=== PATIENT | male | born 1995 | race Caucasian/White ===

== ENCOUNTER 2017-09-12 16:53 | Outpatient (CLI) | payer OTHER ==
[2017-09-12 17:32] LABS: #Eosinphils 0.2 thou/uL (0.0-0.7); #Lymphocytes 1.9 thou/uL (1.20-3.40); #Monocytes 0.8 thou/uL (0.11-0.59); %Basophils 0.7 % (0.0-1.0); %Eosinophils 2.3 % (0.0-10.0); %Lymphocytes 26.9 % (28.0-48.0); %Monocytes 12.1 % (0.0-4.0); Hemoglobin 15.9 g/dL (14.0-18.0); Mean Corpuscular HGB CONC 33.2 g/dL (32.0-36.0); Mean Corpuscular Hemoglobin 31.2 pg (25.0-35.0); Mean Corpuscular Volume 93.9 fl (77.0-87.0); Mean Platelet Volume 7.4 fL (7.4-10.4); Platelet Count 231 thou/uL (130-400); RBC Distribution Width 11.3 % (11.5-14.5); Red Blood Cell (RBC) Count 5.09 mill/uL (4.00-5.20)
[2017-09-12 18:02] LABS: ALT (SGPT) 20 U/L (8-55); AST (SGOT) 13 U/L (5-34); Albumin 4.9 g/dL (3.5-5.0); Alkaline Phosphatase 61 U/L (Less than 750); Anion Gap 15 mmol/L (10-20); BUN (Urea Nitrogen) 6 mg/dL (8.9-20.6); Bilirubin, Direct 0.3 mg/dL (0.1-0.3); Bilirubin, Total 0.9 mg/dL (0.2-1.2); Calc. Creatinine Clearance 0 mL/min (70-130); Calcium 10.5 mg/dL (7.8-10.44); Carbon Dioxide 25 mmol/L (22-29); Chloride 104 mmol/L (98-107); Estimated GFR-MDRD Greater than 90; Globulin 2.7 g/dL (2.4-3.5); Glucose 101 mg/dL (70-105); Potassium 4.7 mmol/L (3.5-5.1); Protein, Total 7.6 g/dL (6.0-8.3); Sodium 139 mmol/L (136-145)
== END 2017-09-12 16:54 | disposition home or self-care (01) ==
LOC: LABBT 16:53
PROVIDERS: ATTEND Surgery
DX: Z01.810 Encounter for preprocedural cardiovascular examination (principal); K81.1 Chronic cholecystitis
CPT/HCPCS: 80053; 80076; 85025

== ENCOUNTER 2017-09-16 08:20 | Observation (INO) | payer OTHER ==
[2017-09-16] MEDS ORDERED: cefOXitin 2 GM, Syringe 1 ML in Sterile Water 10 ML SLOW IVP SCH ×4 (09:45)
[2017-09-16] MEDS ORDERED: Bupivacaine/Epinephrine 0.25% 30 ML VIAL ONE (09:51)
[2017-09-16] MEDS ORDERED: Fentanyl 100 MCG/2 ML VIAL ONE ×4 (10:01→11:58)
[2017-09-16] MEDS ORDERED: Morphine 4 MG/ML VIAL ONE (10:01)
[2017-09-16] MEDS ORDERED: Ondansetron HCl/PF 4 MG/2 ML Vial ONE ×2 (10:03→17:17)
--- NOTE | 2017-09-16 11:31 | OP ---
PREOPERATIVE DIAGNOSIS: Chronic cholecystitis. SURGEON: Luis Steven M.D. PROCEDURE PERFORMED: Laparoscopic cholecystectomy. INDICATIONS: This is a 22-year-old male who has several month history of intermittent right upper qu adrant pain radiating to the back, associated with nausea, worse after certain foods. He had an ultr asound that was negative. He had a HIDA scan, which showed a low ejection fraction. FINDINGS: He had a fairly long small caliber cystic duct, but otherwise unremarkable. DESCRIPTION OF PROCEDURE: After informed consent was obtained, [facility] and given general endotracheal anesthesia, placed in the supine position. The abdomen was pre pped and draped in usual fashion. Local anesthesia infiltrated subcutaneously and deep. A subumbili ricardo incision was performed. Subcu divided sharply. The fascia grasped and two stay sutures of 0 Fadi ryl placed through the side of midline. Midline incised. Digital palpation revealed no local adhesi ons. A blunt 10-12 mm trocar inserted. Pneumoperitoneum was created to a pressure of 15 mmHg. Zero degree laparoscope inserted under direct vision, three 5 mm ports placed subcostally. Gallbladder g rasped advanced superiorly. The peritoneum was lysed distally to expose the cystic duct, cystic serjio ry and critical view. The duct was triply ligated and divided. The artery triply ligated and divide d. The gallbladder was removed from its fossa utilizing electrocautery, removed from the abdomen thr ough the umbilical port. Hemostasis was assured. Trocars and retractors removed. The fascia closed with interrupted 0 Vicryl suture. The skin closed with interrupted 4-0 Rapide. Dermabond applied. The patient tolerated the procedure well and was transferred to recovery in good condition. Sponge and needle count verified correct x2.
[2017-09-16] MEDS ORDERED: HYDROcodone/Acetaminophen 5/325 mg Tablet ONE (13:46)
[2017-09-16] MEDS ORDERED: Promethazine HCl 25 MG/ML VIAL ONE (15:52)
[2017-09-16] MEDS ORDERED: PROPOFOL 200 MG/20 ML VIAL ONE (17:17)
[2017-09-16] MEDS ORDERED: Ketorolac Tromethamine 30 MG/ML VIAL ONE (17:17)
[2017-09-16] MEDS ORDERED: Glycopyrrolate 0.2 MG/ML 5 ML SYRINGE ONE (17:17)
[2017-09-16] MEDS ORDERED: Lidocaine 1% PF 5 ML VIAL ONE (17:17)
[2017-09-16] MEDS ORDERED: Dexamethasone 20 MG/5 ML VIAL ONE ×2 (17:17)
[2017-09-16] MEDS ORDERED: PHENYLEPHRINE-NS 100 MCG/ML 10 ML SYRINGE ONE (17:17)
[2017-09-16] MEDS ORDERED: Morphine 5 MG/ML SYRINGE SLOW IVP PRN (19:22)
[2017-09-16] MEDS ORDERED: Ondansetron HCl/PF 4 MG/2 ML Vial IVP PRN (19:23)
[2017-09-16] MEDS ORDERED: Ondansetron ODT 4 MG TAB SL PRN (19:23)
[2017-09-16] MEDS: D5 1/2 NS w/20 mEq KCL 1,000 ML IV SCH (20:50)
[2017-09-16] MEDS ORDERED: Pantoprazole 40 MG VIAL IVP SCH ×2 (21:00)
[2017-09-16 21:15] VITALS: BMI 23.7
[2017-09-16] MEDS: Promethazine HCl 12.5 MG in Sodium Chloride 0.9% 50 ML IVPB PRN (23:28)
[2017-09-16] MEDS: Morphine 5 MG/ML SYRINGE SLOW IVP PRN (23:28)
[2017-09-17] MEDS: Morphine 5 MG/ML SYRINGE SLOW IVP PRN ×3 (02:52→11:51)
[2017-09-17 05:59] LABS: #Lymphocytes 1.3 thou/uL (1.20-3.40); #Monocytes 1.2 thou/uL (0.11-0.59); #Neutrophils 9.4 thou/uL (1.40-6.50); %Basophils 0.1 % (0.0-1.0); %Eosinophils 0.3 % (0.0-10.0); %Lymphocytes 10.5 % (28.0-48.0); %Monocytes 9.7 % (0.0-4.0); %Neutrophils 79.4 % (31.0-61.0); Hemoglobin 15.4 g/dL (14.0-18.0); Mean Corpuscular HGB CONC 32.9 g/dL (32.0-36.0); Mean Corpuscular Hemoglobin 30.2 pg (25.0-35.0); Mean Platelet Volume 7.4 fL (7.4-10.4); Platelet Count 226 thou/uL (130-400); RBC Distribution Width 11.2 % (11.5-14.5); Red Blood Cell (RBC) Count 5.08 mill/uL (4.00-5.20); White Blood Cell (WBC) Count 11.8 thou/uL (4.8-10.8)
[2017-09-17 06:07] LABS: ALT (SGPT) 37 U/L (8-55); AST (SGOT) 30 U/L (5-34); Albumin 4.3 g/dL (3.5-5.0); Alkaline Phosphatase 60 U/L (Less than 750); Bilirubin, Direct 0.2 mg/dL (0.1-0.3); Bilirubin, Total 0.5 mg/dL (0.2-1.2); Protein, Total 6.8 g/dL (6.0-8.3)
[2017-09-17] MEDS: D5 1/2 NS w/20 mEq KCL 1,000 ML IV SCH (06:21)
[2017-09-17] MEDS: Promethazine HCl 12.5 MG in Sodium Chloride 0.9% 50 ML IVPB PRN (06:22)
[2017-09-17] MEDS ORDERED: traMADol HCl 50 MG TAB PO PRN ×2 (12:52)
[2017-09-17] MEDS ORDERED: Ibuprofen 800 MG TAB PO PRN (12:53)
[2017-09-17] MEDS ORDERED: Acetaminophen 500 MG TAB PO PRN (12:53)
[2017-09-17 13:20] VITALS: BP 114/67; TEMP 98.5
== END 2017-09-17 13:50 | disposition home or self-care (01) ==
LOC: SDC 08:20 → 3SE 18:49
PROVIDERS: ADMIT Surgery; ATTEND Surgery
PROC: 0FT44ZZ Resection of Gallbladder, Percutaneous Endoscopic Approach (ICD-10-PCS; principal; 2017-09-17)
DX: K81.0 Acute cholecystitis (principal); K81.1 Chronic cholecystitis; F17.210 Nicotine dependence, cigarettes, uncomplicated; F12.90 Cannabis use, unspecified, uncomplicated; Z72.89 Other problems related to lifestyle; Z98.890 Other specified postprocedural states
CPT/HCPCS: 36415; 80076; 85025; 88304; 96361; 96374; 96375; 96376; J2270; A4216; C9113; G0378; J0694; J1100; J1885; J2001; J2405; J2550; J2704; J3010; J7050; Q0162

== ENCOUNTER 2017-10-12 16:53 | Emergency (ER) | payer OTHER ==
[2017-10-12] MEDS ORDERED: Haloperidol Lactate 5 MG/ML VIAL ONE (17:06)
[2017-10-12 17:25] LABS: #Basophils 0.1 thou/uL (0.0-0.2); #Lymphocytes 1.7 thou/uL (1.20-3.40); #Monocytes 0.6 thou/uL (0.11-0.59); #Neutrophils 7.4 thou/uL (1.40-6.50); %Basophils 0.6 % (0.0-1.0); %Eosinophils 0.3 % (0.0-10.0); %Lymphocytes 16.9 % (28.0-48.0); %Neutrophils 76.2 % (31.0-61.0); Hemoglobin 17.3 g/dL (14.0-18.0); Mean Corpuscular HGB CONC 35.5 g/dL (32.0-36.0); Mean Corpuscular Hemoglobin 31.1 pg (25.0-35.0); Mean Corpuscular Volume 87.7 fl (77.0-87.0); Mean Platelet Volume 8.3 fL (7.4-10.4); Platelet Count 211 thou/uL (130-400); RBC Distribution Width 10.9 % (11.5-14.5); Red Blood Cell (RBC) Count 5.56 mill/uL (4.00-5.20); White Blood Cell (WBC) Count 9.8 thou/uL (4.8-10.8)
[2017-10-12 17:41] LABS: ALT (SGPT) 13 U/L (8-55); AST (SGOT) 14 U/L (5-34); Albumin 4.9 g/dL (3.5-5.0); Alkaline Phosphatase 55 U/L (Less than 750); Anion Gap 20 mmol/L (10-20); BUN (Urea Nitrogen) 14 mg/dL (8.9-20.6); Bilirubin, Total 0.8 mg/dL (0.2-1.2); Calc. Creatinine Clearance 0 mL/min (70-130); Calcium 10.3 mg/dL (7.8-10.44); Carbon Dioxide 21 mmol/L (22-29); Chloride 104 mmol/L (98-107); Estimated GFR-MDRD Greater than 90; Globulin 2.9 g/dL (2.4-3.5); Glucose 113 mg/dL (70-105); Lipase 17 U/L (8-78); Potassium 3.9 mmol/L (3.5-5.1); Protein, Total 7.8 g/dL (6.0-8.3); Sodium 141 mmol/L (136-145)
== END 2017-10-12 18:29 | disposition home or self-care (01) ==
LOC: SCSER 16:53
DX: G43.A0 Cyclical vomiting, in migraine, not intractable (principal); F17.210 Nicotine dependence, cigarettes, uncomplicated
CPT/HCPCS: 80053; 83690; 85025; 96361; 96374; J1630

== ENCOUNTER 2018-04-02 21:26 | Inpatient (IN) | payer OTHER ==
[2018-04-02] MEDS ORDERED: Ondansetron PF 4 MG/2 ML Vial ONE (21:58)
[2018-04-02] MEDS ORDERED: Haloperidol Lactate 5 MG/ML VIAL ONE (22:01)
[2018-04-02 22:03] LABS: #Basophils 0.1 thou/uL (0.0-0.2); #Eosinphils 0.2 thou/uL (0.0-0.7); #Lymphocytes 2.3 thou/uL (1.20-3.40); #Monocytes 0.8 thou/uL (0.11-0.59); %Basophils 0.9 % (0.0-1.0); %Lymphocytes 27.6 % (28.0-48.0); %Monocytes 9.5 % (0.0-4.0); %Neutrophils 59.9 % (31.0-61.0); Hemoglobin 17.3 g/dL (14.0-18.0); Mean Corpuscular HGB CONC 34.2 g/dL (32.0-36.0); Mean Corpuscular Hemoglobin 30.8 pg (25.0-35.0); Mean Corpuscular Volume 90.1 fL (78.0-98.0); Mean Platelet Volume 7.8 fL (7.4-10.4); Platelet Count 246 thou/uL (130-400); RBC Distribution Width 11.4 % (11.5-14.5); Red Blood Cell (RBC) Count 5.62 mill/uL (4.00-5.20); White Blood Cell (WBC) Count 8.4 thou/uL (4.8-10.8)
[2018-04-02 22:16] LABS: ALT (SGPT) 15 U/L (8-55); AST (SGOT) 17 U/L (5-34); Albumin 5.1 g/dL (3.5-5.0); Alkaline Phosphatase 61 U/L (Less than 750); Anion Gap 17 mmol/L (10-20); BUN (Urea Nitrogen) 13 mg/dL (8.9-20.6); Bilirubin, Total 1.1 mg/dL (0.2-1.2); Calc. Creatinine Clearance 0 mL/min (70-130); Calcium 10.6 mg/dL (7.8-10.44); Carbon Dioxide 22 mmol/L (22-29); Chloride 104 mmol/L (98-107); Estimated GFR-MDRD 74; Globulin 2.9 g/dL (2.4-3.5); Glucose 122 mg/dL (70-105); Lipase 17 U/L (8-78); Potassium 3.2 mmol/L (3.5-5.1); Sodium 140 mmol/L (136-145)
[2018-04-02 23:14] LABS: Bilirubin Small (Negative); Blood, Urine Moderate (Negative); Clarity CLEAR (Clear); Glucose, Urine (Dipstick) Negative (Negative); Leukocyte Negative (Negative); Nitrite Negative (Negative); Protein, Urine (Dipstick) 30 mg/dL (Neg-Trace); Specific Gravity, Urine 1.031 (1.002-1.036); pH, Urine 6.5 (5.0-9.0)
[2018-04-02 23:16] LABS: Bacteria/HPF None Seen HPF (None Seen); Hyaline Casts/LPF 0-3 HYALINE CAST LPF (0-3 Hyaline); Pathc Cast-AUWi Flag 0.29 (0-2.49); RBC/HPF GREATER THAN 50-TNTC HPF (0-3); Squamous Epithelial 0-3 HPF (0-3); WBC/HPF 0-3 HPF (0-3)
[2018-04-02] MEDS ORDERED: Promethazine HCl 25 MG/ML VIAL ONE (23:53)
[2018-04-03] MEDS ORDERED: Ondansetron ODT 4 MG TAB PO PRN (01:16)
[2018-04-03] MEDS ORDERED: Acetaminophen 325 MG TAB PO PRN (01:16)
[2018-04-03] MEDS ORDERED: Promethazine HCl 25 MG in Sodium Chloride 0.9% 50 ML IVPB PRN (01:16)
[2018-04-03] MEDS ORDERED: Ondansetron PF 4 MG/2 ML Vial IVP PRN (01:16)
[2018-04-03] MEDS ORDERED: Acetaminophen 650 MG Suppository PR PRN (01:16)
[2018-04-03] MEDS ORDERED: Potassium Phosphate 30 MMOL in Sodium Chloride 0.9% 500 ML IVPB SCH (02:00)
[2018-04-03] MEDS ORDERED: Pantoprazole 40 MG VIAL IVP SCH (02:15)
[2018-04-03] MEDS: D5 1/2 NS w/20 mEq KCL 1,000 ML IV SCH ×3 (02:40→18:08)
[2018-04-03 03:11] LABS: Medtox Reader # READER 1; THC/Cannabinoid Screen Detected (NotDetected)
[2018-04-03 03:12] LABS: Amphetamine Not Detected (NotDetected); Barbiturates Screen Not Detected (NotDetected); Benzodiazepine Screen Not Detected (NotDetected); Cocaine Metabolite Screen Not Detected (NotDetected); Medtox Control Line Valid? VALID (VALID); Methadone Not Detected (NotDetected); Methamphetamine Not Detected (NotDetected); Opiate Screen Not Detected (NotDetected); Oxycodone Screen Not Detected (NotDetected); Phencyclidine (PCP) Not Detected (NotDetected); Tricyclic Screen Not Detected (NotDetected)
--- NOTE | 2018-04-03 03:54 | HP ---
DATE OF ADMISSION: 04/03/2018 PRIMARY CARE PHYSICIAN: Jessica Ash M.D. CHIEF COMPLAINT: Nausea, vomiting. HISTORY OF PRESENT ILLNESS: The patient is a 22-year-old male with episodic nausea, vomiting of uncl ear etiology, was brought into the emergency room with the above complaints. Around 8:00 p.m. while he was at home, he had sudden onset of nausea with multiple episodes of vomiting. His vomitus was bi lious with small amount of blood. He also had abdominal discomfort that was generalized crampy witho ut any aggravating or relieving factor. No headache, double vision, blurring of vision, or balance i ssues reported. He has been extensively worked up in [place], [place]. He has EGD, colonoscopy, and abdominal imaging. History obtained from the patient and his friend at the bedside. Mother is on he r way from [place]. In the emergency room, initial vital signs showed temperature 98.4, respiration 18, pulse rate of 75, blood pressure of 120/77 with O2 saturation 100% on room air. The patient received 3 liters of IV f luid with 2.5 mg Haldol and 12.5 mg Phenergan. PAST MEDICAL HISTORY: Episodic nausea, vomiting with abdominal discomfort. Lately, this has been woods ppening every 2 weeks in the past and used to be twice a week. PAST SURGICAL HISTORY: Laparoscopic cholecystectomy in August of this year by Dr. Steven. ALLERGIES: No known drug allergies. CURRENT HOME MEDICATIONS: Reviewed with the patient and none. SOCIAL HISTORY: The patient has a history of cannabis abuse in the past. He drinks alcohol socially . He smokes occasionally. FAMILY HISTORY: Negative for GI malignancies or heart disease. REVIEW OF SYSTEMS: The following complete review of systems was negative, unless otherwise mentioned in the HPI or below: Constitutional: Weight loss or gain, ability to conduct usual activities. Sk in: Rash, itching. Eyes: Double vision, pain. ENT/Mouth: Nose bleeding, neck stiffness, pain, ten derness. Cardiovascular: Palpitations, dyspnea on exertion, orthopnea. Respiratory: Shortness of breath, wheezing, cough, hemoptysis, fever or night sweats. Gastrointestinal: Poor appetite, abdomi nal pain, heartburn, nausea, vomiting, constipation, or diarrhea. Genitourinary: Urgency, frequency , dysuria, nocturia. Musculoskeletal: Pain, swelling. Neurologic/Psychiatric: Anxiety, depression . Allergy/Immunologic: Skin rash, bleeding tendency. PHYSICAL EXAMINATION: VITAL SIGNS: As discussed above. GENERAL: A 22-year-old male in mild distress due to intractable nausea, vomiting. HEENT: Head atraumatic, normocephalic. Sclerae are anicteric. Moist mucous membrane, no oral lesio n. NECK: Supple, no JVD, no carotid bruit. LUNGS: Clear to auscultation bilaterally. HEART: S1, S2 present. Regular rate and rhythm. No murmur, rubs, or gallops appreciated. ABDOMEN: Abdomen was soft, mild generalized tenderness, no rebound, guarding, no costovertebral angl e tenderness. EXTREMITIES: No edema or calf tenderness. NEUROLOGIC: Grossly nonfocal, moves all four extremities. PSYCHIATRY: Alert, awake, oriented x3. SKIN: Warm and dry. LYMPH NODES: No palpable lymph nodes in the neck. PERIPHERAL VASCULAR: Radial pulses palpable bilaterally. MUSCULOSKELETAL: No joint swelling or tenderness. LABORATORY AND X-RAY FINDINGS: CBC showed WBC 8.4 with hemoglobin 17.3, hematocrit 50.6, and platele t 246. Chemistry showed sodium 140, potassium 3.2, chloride 104, bicarbonate 22, BUN 13, creatinine 1.25, calcium 10.6, phosphorus 2.0, magnesium 2.0. Ketones of 0.57. Urinalysis showed ketones. IMPRESSION: 1. Nausea, vomiting with abdominal discomfort of unclear etiology. 2. Dehydration. 3. Electrolyte abnormalities. The patient has hypokalemia and hypophosphatemia. 4. Starvation ketosis. 5. Tobacco dependence. 6. History of cannabis abuse. PLAN: The patient will be monitored on the medical floor. We will continue IV fluids. We will repl adrienne potassium and phosphorus. Antiemetics. Consult Gastroenterology. We will keep him n.p.o. IV P PIs. We will repeat labs in a.m. We will try to obtain records from [place]. Urine drug screen woods s been ordered in the ER and pending at this time. Plan of care was discussed with the patient in detail. He stated understanding.
[2018-04-03] MEDS: Pantoprazole 40 MG VIAL IVP SCH ×2 (08:37→22:17)
--- NOTE | 2018-04-03 11:07 | CON ---
DATE OF CONSULTATION: 04/03/2018 CHIEF COMPLAINT: Nausea and vomiting. 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 He has had intractable nausea with vomiting over the last day and vomited a streak of red blood yesterday. He has had some cramping, generalized abdominal di scomfort with this. He has been in and out of the emergency room a few times with these symptoms and usually he improves after about 36 hours. His girlfriend gives most of the history since he is so n auseated. He has undergone EGD and colonoscopy in [place], [place]. He has had CT scan of the abdome n per his report. He has seen 3 GI doctors over the course of this time. He did stop smoking mariju danica for a while, but the vomiting continued. Lately, he has been smoking a couple of times per week. His urine tox screen was positive for marijuana on presentation is to be expected. PAST MEDICAL HISTORY: Otherwise, negative. PAST SURGICAL HISTORY: He had cholecystectomy back in September. His symptoms improved for about 3 weeks after that and then the nausea and vomiting returned. He had upper and lower endoscopy. SOCIAL HISTORY: He is a student at [employer]. He has not been drinking alcohol over the year since he does not tolerate it with nausea and vomiting. He smokes marijuana a couple times p er week. Occasional tobacco. ALLERGIES: No known drug allergies. MEDICATIONS AT HOME: He takes Advil 3 tablets maybe once a week for an occasional headache. REVIEW OF SYSTEMS: Negative x10 systems reviewed except as stated in history of present illness. PHYSICAL EXAMINATION: VITAL SIGNS: Temperature 98.4, pulse 86, blood pressure 114/60. GENERAL: He is in no acute distress. He is lying in the bed, does not make eye contact and contribu li little to the history. EYES: Have no scleral icterus. OROPHARYNX: Clear, without lesions. NECK: No cervical or supraclavicular lymphadenopathy. LUNGS: Clear to auscultation bilaterally. HEART: Regular rate and rhythm without murmur. ABDOMEN: Soft, nontender, nondistended. Bowel sounds are present. EXTREMITIES: No lower extremity edema. LABORATORY DATA: White blood cell count 8.4, hemoglobin 17.3, platelets 246, creatinine 1.25, potass ium 3.2, calcium 10.6, bilirubin 1.1, AST 17, ALT 15, alkaline phosphatase 61, lipase 17. Urine was positive for cannabinoids. IMPRESSION: Cannabis hyperemesis syndrome. The symptoms can persist for months after cessation of t he cannabis. He continues to smoke a couple of times per week. He has had upper and lower endoscopy and imaging which have been negative per his report. Other possibilities would be cyclical vomiting syndrome or abdominal migraine. This would be much less likely. Idiopathic gastroparesis is also a consideration, but again unlikely. RECOMMENDATIONS: 1. Completely stop cannabis for the next 6 months and evaluate response of his symptoms over that ti me period. It can take up to that long for the symptoms to completely resolve after cessation of can nabis. 2. Follow up in GI clinic. Gastric emptying scan can be performed. 3. Obtain the reports from his prior CT scan and EGD and colonoscopy. 4. The streaks of hematemesis reported are consistent with a mild Migdalia-Carlton tear. I would not p deyvi on repeating endoscopy at this time. We will obtain a prior endoscopy report.
[2018-04-03] MEDS ORDERED: Ketorolac Tromethamine 30 MG/ML VIAL IVP SCH (15:45)
--- NOTE | 2018-04-03 15:58 | PDOC.EVN ---
Event Note - Event Note Event Note: Patient still somewhat somnolent. Will awaken and answer questions. Gi has seen. Dictation pending. Likely hyperemesis cannabis. Continue hydration and symptomatic treatment. Records from [facility] requested. Has mild hypercalcemia. Likely due to dehydration. Recheck in am. Also check PTH. Would offer some BZD, but still somnolent. Reported MICHAEL this afternoon. Toradol given. Want to avoid opioids if possible. Not able to take much PO now.
[2018-04-03] MEDS ORDERED: Lorazepam 2 MG/ML VIAL SLOW IVP SCH (17:00)
[2018-04-04] MEDS: D5 1/2 NS w/20 mEq KCL 1,000 ML IV SCH ×4 (02:45→21:14)
[2018-04-04] MEDS ORDERED: Promethazine HCl 25 MG in Sodium Chloride 0.9% 50 ML IVPB SCH (03:15)
[2018-04-04 05:25] LABS: #Eosinphils 0.1 thou/uL (0.0-0.7); #Lymphocytes 2.2 thou/uL (1.20-3.40); #Monocytes 0.8 thou/uL (0.11-0.59); #Neutrophils 3.7 thou/uL (1.40-6.50); %Basophils 0.4 % (0.0-1.0); %Eosinophils 1.9 % (0.0-10.0); %Lymphocytes 32.7 % (28.0-48.0); %Monocytes 11.4 % (0.0-4.0); %Neutrophils 53.6 % (31.0-61.0); Hemoglobin 14.5 g/dL (14.0-18.0); Mean Corpuscular Hemoglobin 30.4 pg (25.0-35.0); Mean Corpuscular Volume 92.2 fL (78.0-98.0); Mean Platelet Volume 7.9 fL (7.4-10.4); Platelet Count 196 thou/uL (130-400); RBC Distribution Width 11.5 % (11.5-14.5); Red Blood Cell (RBC) Count 4.76 mill/uL (4.00-5.20); White Blood Cell (WBC) Count 6.9 thou/uL (4.8-10.8)
[2018-04-04 05:34] LABS: ALT (SGPT) 11 U/L (8-55); AST (SGOT) 11 U/L (5-34); Alkaline Phosphatase 44 U/L (Less than 750); Anion Gap 7 mmol/L (10-20); BUN (Urea Nitrogen) 10 mg/dL (8.9-20.6); Calc. Creatinine Clearance 140 mL/min (70-130); Calcium 9.1 mg/dL (7.8-10.44); Carbon Dioxide 28 mmol/L (22-29); Chloride 107 mmol/L (98-107); Estimated GFR-MDRD Greater than 90; Glucose 109 mg/dL (70-105); Magnesium 1.8 mg/dL (1.7-2.2); Phosphorus 2.6 mg/dL (2.3-4.7); Potassium 3.8 mmol/L (3.5-5.1); Sodium 138 mmol/L (136-145)
[2018-04-04] MEDS: Lorazepam 2 MG/ML VIAL SLOW IVP PRN ×3 (08:04→21:13)
[2018-04-04] MEDS: Pantoprazole 40 MG VIAL IVP SCH ×2 (08:04→21:12)
--- NOTE | 2018-04-04 16:29 | PDOC.PN ---
- Subjective Encounter Start Date: 04/04/18 Encounter Start Time: 12:50 Feeling better. The Lorazepam has helped significantly. Feels like he could eat. - Objective Resuscitation Status: Resuscitation Status FULL:Full Resuscitation Vital Signs & Weight: Vital Signs (12 hours) Temp Pulse Resp BP BP Pulse Ox 04/04/18 16:00 98.6 F 57 L 16 95/56 L 95 04/04/18 11:45 98.0 F 67 16 101/60 96 04/04/18 08:00 98.3 F 69 16 118/72 97 04/04/18 05:03 97/58 L Weight Admit Weight 180 lb Weight 180 lb I&O: 04/03/18 04/04/18 04/05/18 06:59 06:59 06:59 Intake Total 1500 Balance 1500 Result Diagrams: 04/04/18 03:50 04/04/18 03:50 Phys Exam - Physical Examination Constitutional: NAD Respiratory: no wheezing, no rales, no rhonchi, clear to auscultation bilateral Cardiovascular: RRR, no significant murmur Gastrointestinal: soft, non-tender, no distention, positive bowel sounds Musculoskeletal: no edema Dx/Plan (1) Nausea & vomiting Code(s): R11.2 - NAUSEA WITH VOMITING, UNSPECIFIED Status: Acute - Plan * Continue symptomatic therapy. * Long discussion with the patient and his mother. His symptoms started months before the marijuana use started. Indicates he started the marijuana to try to treat the symptoms. Symptoms did not resolve when off of it for two months. Reports it actually go worse. Originally, he had abdominal distention and obstipation several days prior to the N/V. That resolved after he had the mikaela. He does not think he had any GI infection prior to the onset of these symptoms. * I explained that it is difficult to look past the marijuana use and the fact that he gets better with the lorazepam (which may support the diagnosis of hyperemesis cannibis). However, I will order a gastric emptying study and see what else we can do to try to treat this as a cyclical vomiting syndrome otherwise. Clears as tolerated.
--- NOTE | 2018-04-05 00:51 | PRG ---
DATE OF SERVICE: 04/04/2018 SUBJECTIVE: Today Naman wake up and make eye contact certainly interacts more appropriately. His mo ther is in the room now and gives additional history. She states that the original information was i ncorrect that he has not had a colonoscopy. He has had an upper endoscopy which did show some esopha gitis per her report. Leading up to this problem a year ago, he has developed chronic constipation. He has continued to having constipation throughout this time and over this past summer, even after h is gallbladder surgery, he has been taking MiraLax twice daily in addition to Dulcolax. He would go up to 5 days without a bowel movement. His abdomen would become distended after the constipation benjamin t he developed episodes of nausea and vomiting as well. He has had persistent nausea daily. His las t episode of the nausea and vomiting that was just severe at the beginning of the summer. We still h ave no records from the outside hospital. OBJECTIVE: VITAL SIGNS: Temperature 98.6, pulse 57, blood pressure 95/56. GENERAL: He is in no acute distress, alert and oriented x3. HEENT: Eyes have no scleral icterus. LUNGS: Clear to auscultation bilaterally. HEART: Regular rate and rhythm without murmur. ABDOMEN: Soft, nontender, nondistended. Bowel sounds are present. EXTREMITIES: No lower extremity edema. IMPRESSION: Chronic nausea and vomiting, most likely secondary to cannabis hyperemesis syndrome. Hi s mother reports that the symptoms did start well before he started smoking marijuana. She also repo rts that his last time they smoked marijuana was 3 weeks ago before the onset of this acute exacerbat ion which is not consistent with the story that he gave me or with his positive tox screen. With benjamin t being said, the symptoms started with worsening chronic constipation and this would not be explaine d by cannabis hyperemesis. He has not had a lower endoscopy and this should be performed to rule out any neoplastic or inflammatory process in the colon or terminal ileum as a source for symptoms. Cyc lical vomiting syndrome really is not likely as he has chronic daily nausea with cyclical vomiting sy ndrome that he should return to normal, between episodes. He does not have problems with chronic kt mike, there is no family history of migraine headaches. A post-infectious gastroparesis is still a possibility. Optimally, we would do a gastric emptying scan as an outpatient between acute episodes . His nausea and vomiting is better today in the hospital and has been unable to move forward with h is school work due to these symptoms, we will follow through with gastric emptying scan tomorrow. Af ter the gastric emptying scan, he can start a bowel prep and will plan EGD and colonoscopy on morning. He did have some hematemesis with this admission, which I would think is most likely from erosive esophagitis or possibly a small Migdalia-Carlton tear. We will also be able to rule out gastri c outlet obstruction or pyloric ulcer or other peptic ulcer. RECOMMENDATIONS: 1. Again discussed importance of complete cessation of all marijuana use. He can take several month s off the marijuana before the symptoms actually resolved. 2. We will follow up the results of the gastric emptying scan for tomorrow. 3. After the gastric emptying scan tomorrow, he can start a clear liquid diet and then we will perfo rm EGD and colonoscopy on morning. 4. If the gastric emptying scan and upper and lower endoscopy are negative, then consider CT scan of the abdomen and pelvis as the next step after that; however, again results of the previous CT scan h ave been requested. 5. Ultimately, if these findings are all negative then consider a CT of the brain with contrast.
[2018-04-05] MEDS: D5 1/2 NS w/20 mEq KCL 1,000 ML IV SCH ×2 (06:02→16:19)
[2018-04-05 06:04] VITALS: BMI 24.0
[2018-04-05] MEDS: Pantoprazole 40 MG VIAL IVP SCH ×2 (07:30→20:58)
[2018-04-05] MEDS: Lorazepam 2 MG/ML VIAL SLOW IVP PRN ×3 (08:04→20:58)
--- NOTE | 2018-04-05 13:48 | NM ---
RADIONUCLIDE GASTRIC EMPTYING SCAN: HISTORY: Chronic vomiting. RADIOPHARMACEUTICAL: 2 mCi technetium-99m sulfur colloid administered orally in scrambled eggs. FINDINGS: There is 40% emptying of the ingested gastric contents at 1 hour, 67% emptying at 2 hours, 86% emptyi ng at 3 hours, and 100% emptying at 4 hours. The calculated gastric emptying halftime measures 84 minutes. IMPRESSION: Normal exam. POS: [facility]
[2018-04-05] MEDS ORDERED: GoLYTELY 4,000 ml Bottle PO SCH (16:00)
--- NOTE | 2018-04-05 17:49 | PRG ---
DATE OF SERVICE: 04/05/2018 SUBJECTIVE: Mr. Benavides is feeling much better today. He is tolerating clear liquids. OBJECTIVE: VITAL SIGNS: Temperature 98.1, pulse 60, blood pressure 99/60. GENERAL: He is in no acute distress, alert and oriented x3. HEENT: Eyes have no scleral icterus. Oropharynx is clear without lesions. NECK: No cervical or supraclavicular lymphadenopathy. LUNGS: Clear to auscultation bilaterally. HEART: Regular rate and rhythm without murmur. ABDOMEN: Soft, nontender, nondistended. Bowel sounds are present. EXTREMITIES: No lower extremity edema. IMPRESSION: Chronic nausea and vomiting. Again, this is most likely secondary to cannabis hyperemes is syndrome. Given that this started with change in bowel habits with constipation, we will need to adjust laxatives over time and to clinic as well. He has been on MiraLax twice daily previously. Th is can be restarted at the time of discharge. We can start Trulance or Linzess in addition to those if necessary. We will continue to rule out other sources for these symptoms. The gastric emptying s can was normal with 100% emptying at 4 hours. We will follow through with EGD and colonoscopy tomorr ow. If that is negative, then plan CT scan of the abdomen and pelvis and if that is negative, then C T scan of the brain. If all these studies are negative, then the primary treatment will be avoidance of cannabis, which may take several months to see full recovery of symptoms. RECOMMENDATIONS: 1. GoLYTELY bowel prep today. 2. EGD and colonoscopy tomorrow.
--- NOTE | 2018-04-05 23:06 | PDOC.PN ---
- Subjective Encounter Start Date: 04/05/18 Encounter Start Time: 15:00 Still has some nausea. - Objective Resuscitation Status: Resuscitation Status FULL:Full Resuscitation Vital Signs & Weight: Vital Signs (12 hours) Temp Pulse Resp BP Pulse Ox 04/05/18 19:00 97.9 F 49 L 16 106/62 98 04/05/18 16:21 97.9 F 55 L 16 115/69 96 Weight Admit Weight 180 lb Weight 177 lb 8 oz I&O: 04/04/18 04/05/18 04/06/18 06:59 06:59 06:59 Intake Total 1500 2500 1100 Balance 1500 2500 1100 Result Diagrams: 04/04/18 03:50 04/04/18 03:50 Phys Exam - Physical Examination Constitutional: NAD Respiratory: no wheezing, no rales, no rhonchi, clear to auscultation bilateral Cardiovascular: RRR, no significant murmur Gastrointestinal: soft, non-tender, no distention, positive bowel sounds Musculoskeletal: no edema Psychiatric: normal affect Dx/Plan (1) Nausea & vomiting Code(s): R11.2 - NAUSEA WITH VOMITING, UNSPECIFIED Status: Acute Comment: Seen in conjunction with GI today. Plan is for endoscopy in the morning. Pending the results of that, consider repeat CT abdomen. Most likely source remains hyperemesis cannibis. (2) Abdominal pain Code(s): R10.9 - UNSPECIFIED ABDOMINAL PAIN Status: Acute - Plan * Continue symptomatic treatment of nausea.
[2018-04-06] MEDS: D5 1/2 NS w/20 mEq KCL 1,000 ML IV SCH ×3 (05:15→20:17)
--- NOTE | 2018-04-06 10:20 | OP ---
DATE OF PROCEDURE: 04/06/2018 PROCEDURE PERFORMED: Esophagogastroduodenoscopy with biopsy and colonoscopy. PREOPERATIVE DIAGNOSIS: Intractable nausea and vomiting and change in bowel habits with chronic cons tipation. OPERATIVE NOTE: Informed consent was obtained from the patient. He was sedated with total intraveno us anesthesia. The bite block was placed and the endoscope was advanced easily to the second portion of the duodenum and retroflexion was performed in the stomach. The esophagus was normal. The GE ju nction was normal. The stomach had mild erythematous gastritis in the fundus consistent with recent vomiting. Biopsies were obtained from the stomach to rule out H. pylori. The pylorus and first and second portions of the duodenum were normal. It was noted that he did have a prior EGD with normal d uodenal biopsies and therefore additional biopsies were not obtained from the duodenum today. Retrof tonie views in the stomach were otherwise normal. The patient was turned around. Rectal exam was perf ormed and was normal. The preparation quality was good. The colonoscope was advanced to the termina l ileum without difficulty. The mucosa of the terminal ileum was normal. The ileocecal valve and ap pendiceal orifice were clearly identified. The colonic mucosa was normal throughout. Retroflexed vi ews in the rectum were normal. IMPRESSION: 1. Minimal gastritis in the fundus of the stomach secondary to recent vomiting. Biopsies were taken to rule out Helicobacter pylori. 2. Otherwise normal esophagogastroduodenoscopy. 3. Normal ileal colonoscopy. RECOMMENDATIONS: 1. CT of the abdomen and pelvis with oral and IV contrast today. 2. If the CT of the abdomen is normal, then we will plan a CT scan of the brain with contrast. If t hat is normal, then he can be discharged home and follow up in the office for symptomatic treatment. 3. Complete cessation of marijuana use is recommended as he has suspected cannabis hyperemesis syndr ome.
[2018-04-06] MEDS: Pantoprazole 40 MG VIAL IVP SCH ×2 (10:48→20:17)
--- NOTE | 2018-04-06 13:46 | CT ---
CT ABDOMEN AND PELVIS WITH ORAL AND IV CONTRAST: Date: 04/06/18 HISTORY: Intractable nausea and vomiting. FINDINGS: The lung bases are clear. The liver, spleen, pancreas, adrenal glands, and kidneys are normal. The pa tient is post cholecystectomy. No free air, free fluid, or lymphadenopathy seen in the abdomen or pel vis. The small bowel loops are not abnormally dilated. A normal appearing appendix is seen. There is sigmoid diverticulosis without evidence of diverticulitis. IMPRESSION: Sigmoid diverticulosis. No evidence of acute process. POS: [facility]
[2018-04-06] MEDS ORDERED: ISOVUE-370 76%-LOCM 1 ML ONE (16:19)
[2018-04-06] MEDS ORDERED: Iopamidol 370 76% 50 ML VIAL FS ONE (16:19)
--- NOTE | 2018-04-06 19:46 | PDOC.PN ---
- Subjective Encounter Start Date: 04/06/18 Encounter Start Time: 14:00 Subjective: nsg notes rev, mira ovn, tolerated lunch, mother at bedside - Objective Resuscitation Status: Resuscitation Status FULL:Full Resuscitation Vital Signs & Weight: Vital Signs (12 hours) Temp Pulse Resp BP Pulse Ox 04/06/18 16:00 98.2 F 55 L 16 99/61 98 04/06/18 10:35 97.6 F 47 L 16 95/62 100 Weight Admit Weight 180 lb Weight 177 lb 8 oz I&O: 04/05/18 04/06/18 04/07/18 06:59 06:59 06:59 Intake Total 2500 3444 Balance 2500 3444 Result Diagrams: 04/04/18 03:50 04/04/18 03:50 Dx/Plan - Plan - Physical Examination Constitutional: NAD Respiratory: no wheezing, no rales, no rhonchi, clear to auscultation bilateral Cardiovascular: RRR, no significant murmur Gastrointestinal: soft, non-tender, no distention, positive bowel sounds Musculoskeletal: no edema Psychiatric: normal affect Dx/Plan (1) Nausea & vomiting Code(s): R11.2 - NAUSEA WITH VOMITING, UNSPECIFIED Status: Acute Comment: Seen in conjunction with GI today. Plan is for endoscopy in the morning. Pending the results of that, consider repeat CT abdomen. Most likely source remains hyperemesis cannibis. Improved symptoms. Discussed with pt and his mother that continued outpatient management and evaluation will be needed. (2) Abdominal pain Code(s): R10.9 - UNSPECIFIED ABDOMINAL PAIN Status: Acute - Plan * Continue symptomatic treatment of nausea. If continued control, will d/c in the next 24-48 hrs to home. * Greater than 30 min spent at bedside discussing possible POC with pt and family Review of Systems - Medications/Allergies Allergies/Adverse Reactions: Allergies Allergy/AdvReac Type Severity Reaction Status Date / Time No Known Allergies Allergy Verified 09/12/17 17:05 Medications: Current Medications Acetaminophen (Tylenol) 650 mg [place] Q4H PRN PRN Reason: Headache/Fever/Mild Pain (1-3) Acetaminophen (Tylenol) 650 mg PO Q4H PRN PRN Reason: Headache/Fever/Mild Pain (1-3) Potassium Chloride/Dextrose/Sod Cl (D5 1/2 Ns W/20 Meq Kcl) 1,000 mls @ 125 mls /hr IV .Q8H [facility] Last Admin: 04/06/18 10:48 Dose: Not Given Lorazepam (Ativan) 1 mg SLOW IVP Q6H PRN PRN Reason: MD DIRECTED Last Admin: 04/05/18 20:58 Dose: 1 mg Ondansetron HCl (Zofran Odt) 4 mg PO Q6H PRN PRN Reason: Nausea/Vomiting Ondansetron HCl (Zofran) 4 mg IVP Q6H PRN PRN Reason: Nausea/Vomiting Last Admin: 04/03/18 14:01 Dose: 4 mg Pantoprazole Sodium (Protonix) 40 mg IVP Q12HR [facility] Last Admin: 04/06/18 10:48 Dose: 40 mg Sodium Chloride (Flush - Normal Saline) 10 ml IVF Q12HR [facility] Last Admin: 04/06/18 10:48 Dose: 10 ml Sodium Chloride (Flush - Normal Saline) 10 ml IVF PRN PRN PRN Reason: Saline Flush
[2018-04-06] MEDS: Lorazepam 2 MG/ML VIAL SLOW IVP PRN (23:25)
[2018-04-07] MEDS: D5 1/2 NS w/20 mEq KCL 1,000 ML IV SCH ×2 (04:01→12:20)
[2018-04-07] MEDS: Pantoprazole 40 MG VIAL IVP SCH (08:21)
--- NOTE | 2018-04-07 11:31 | MRI ---
BRAIN MRI WITH AND WITHOUT CONTRAST: Date: 04/07/18 INDICATION: Altered mental status with persistent vomiting. Recent procedure. FINDINGS: Cavum septum pellucidum et vergae is present. There is no ventriculomegaly or midline shift. No intra cranial hemorrhagic susceptibility or evidence of acute territorial infarction. There is no pathologi c intra-axial enhancement. Imaged skull base flow-voids are patent. IMPRESSION: No acute intracranial abnormalities. POS: ALANNA
[2018-04-07 16:45] VITALS: BP 104/54; TEMP 98.3
[2018-04-07] MEDS ORDERED: Gadobenate Dimeglumine 529 MG/1 ML (20ML VIAL) ONE (16:47)
--- NOTE | 2018-04-07 17:39 | PRG ---
DATE OF SERVICE: 04/07/2018 SUBJECTIVE: Naman is feeling fine, tolerating regular diet today. OBJECTIVE: ABDOMEN: Soft, nontender, nondistended. Bowel sounds are present. 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 MRI of the brain is negative for intracranial process as a source for the nausea and vomiting. Abdominal CT was negative . Upper and lower endoscopy were also negative. Biopsies from the stomach showed some mild gastriti s and were negative for Helicobacter pylori. RECOMMENDATIONS: 1. Complete abstinence from marijuana. 2. Follow up in GI clinic in a month.
== END 2018-04-07 17:27 | disposition home or self-care (01) | DRG 391 ==
LOC: ERS 21:26 → T4-B 04-03 01:16
PROVIDERS: ADMIT Internal Medicine; ATTEND Internal Medicine
PROC: 0DB98ZX Excision of Duodenum, Via Natural or Artificial Opening Endoscopic, Diagnostic (ICD-10-PCS; principal; 2018-04-06)
PROC: 0DB68ZX Excision of Stomach, Via Natural or Artificial Opening Endoscopic, Diagnostic (ICD-10-PCS; 2018-04-06)
PROC: 0DJD8ZZ Inspection of Lower Intestinal Tract, Via Natural or Artificial Opening Endoscopic (ICD-10-PCS; 2018-04-06)
DX: R11.2 Nausea with vomiting, unspecified (principal); K22.6 Gastro-esophageal laceration-hemorrhage syndrome; E87.2 Acidosis; F12.188 Cannabis abuse with other cannabis-induced disorder; E86.0 Dehydration; E87.6 Hypokalemia; E83.39 Other disorders of phosphorus metabolism; F17.200 Nicotine dependence, unspecified, uncomplicated
CPT/HCPCS: 36415; 70553; 74177; 78264; 80053; 80306; 81003; 81015; 82010; 83690; 83735; 83970; 84100; 85025; 88305; 88312; 96361; 96365; 96375; A9541; A9579; C9113; J1630; J1885; J2060; J2405; J2550; J7050

== ENCOUNTER 2019-03-10 23:20 | Emergency (ER) | payer OTHER ==
[2019-03-10 23:56] LABS: #Lymphocytes 1.5 thou/uL (1.20-3.40); #Monocytes 1.2 thou/uL (0.11-0.59); #Neutrophils 7.5 thou/uL (1.40-6.50); %Basophils 0.4 % (0.0-1.0); %Eosinophils 0.3 % (0.0-10.0); %Monocytes 11.3 % (0.0-10.0); %Neutrophils 72.9 % (42.0-75.0); Hemoglobin 17.3 g/dL (14.0-18.0); Mean Corpuscular HGB CONC 34.9 g/dL (32.0-36.0); Mean Corpuscular Hemoglobin 31.5 pg (27.0-31.0); Mean Corpuscular Volume 90.1 fL (78.0-98.0); Mean Platelet Volume 7.6 fL (7.4-10.4); Platelet Count 233 thou/uL (130-400); RBC Distribution Width 11.4 % (11.5-14.5); Red Blood Cell (RBC) Count 5.49 mill/uL (4.70-6.10); White Blood Cell (WBC) Count 10.3 thou/uL (4.8-10.8)
[2019-03-11] MEDS ORDERED: Ondansetron PF 4 MG/2 ML Vial ONE (00:06)
[2019-03-11 00:17] LABS: ALT (SGPT) 17 U/L (8-55); AST (SGOT) 20 U/L (5-34); Albumin 5.3 g/dL (3.5-5.0); Alkaline Phosphatase 68 U/L (40-110); Anion Gap 21 mmol/L (10-20); BUN (Urea Nitrogen) 17 mg/dL (8.9-20.6); Bilirubin, Total 1.3 mg/dL (0.2-1.2); Calc. Creatinine Clearance 0 mL/min (70-130); Calcium 10.3 mg/dL (7.8-10.44); Carbon Dioxide 19 mmol/L (22-29); Chloride 98 mmol/L (98-107); Estimated GFR-MDRD 72; Globulin 2.6 g/dL (2.4-3.5); Glucose 103 mg/dL (70-105); Lipase 14 U/L (8-78); Potassium 3.7 mmol/L (3.5-5.1); Protein, Total 7.9 g/dL (6.0-8.3); Sodium 134 mmol/L (136-145)
[2019-03-11 00:57] LABS: Bilirubin Negative (Negative); Blood, Urine 2+ (Negative); Clarity Clear (Clear); Glucose, Urine (Dipstick) Normal (Negative); Leukocyte Negative Leu/uL (Negative); Nitrite Negative (Negative); Protein, Urine (Dipstick) 50 mg/dL (Neg-Trace); Squamous Epithelial None Seen HPF (0-3); Urobilinogen Normal mg/dL (Less than 2); WBC/HPF 0-3 HPF (0-3)
[2019-03-11 00:58] LABS: Bacteria/HPF 1+ HPF (None Seen)
[2019-03-11] MEDS ORDERED: Haloperidol Lactate 5 MG/ML VIAL ONE (02:12)
[2019-03-11] MEDS ORDERED: Lidocaine Viscous Sol 2% 15 ml UD Cup ONE (02:20)
[2019-03-11] MEDS ORDERED: Mag-Al 1200 mg/1200 mg/30 ML UDCUP ONE (02:20)
== END 2019-03-11 03:30 | disposition home or self-care (01) ==
LOC: ERS 23:20
DX: R11.2 Nausea with vomiting, unspecified (principal)
CPT/HCPCS: 36415; 80053; 81003; 81015; 82550; 83690; 85025; 96361; 96365; 96375; J1630; J2405